=== PATIENT | male | born 1965 | race Caucasian/White ===

== ENCOUNTER 2024-11-01 17:14 | Emergency (ER) | payer OTHER ==
[~2024-11-01] VITALS: Ht 154.9 cm; Wt 95.3 kg
[2024-11-01] MEDS ORDERED: KETOROLAC TROMETHAMINE 15 MG/ML VIAL ONE (18:49)
[2024-11-01] MEDS: KETOROLAC TROMETHAMINE 15 MG/ML VIAL IM ONE (18:52)
[2024-11-01] MEDS ORDERED: IBUP-1953 PO (19:22)
[2024-11-01] MEDS ORDERED: TIZA-180 PO (19:25)
[2024-11-01] MEDS ORDERED: LIDO30AD10 TP (19:33)
[2024-11-01 19:47] VITALS: BP 131/71; TEMP 98; O2SAT 98
== END 2024-11-01 19:48 | disposition home or self-care (01) ==
LOC: ER 18:07
DX: M54.50 Low back pain, unspecified (principal); M79.604 Pain in right leg; M79.605 Pain in left leg; X50.0XXA Overexertion from strenuous movement or load, initial encounter; Y93.89 Activity, other specified; Y92.89 Other specified places as the place of occurrence of the external cause; Y99.8 Other external cause status
CPT/HCPCS: 99283; 96372; 72100; J1885